=== PATIENT | female | born 1975 | race Caucasian/White ===

== ENCOUNTER 2021-03-31 00:59 | Emergency (ER) | payer MEDICAID ==
[~2021-03-31] VITALS: Ht 177.8 cm; Wt 93.0 kg
[2021-03-31 01:05] VITALS: BP_SYST 142
--- NOTE | 2021-03-31 01:12 | NUR ---
Patient to ER bed 6 to gown for evaluation. Side rails up. Report given to ELISABET Jones.
--- NOTE | 2021-03-31 01:30 | NUR ---
DR. ROYAL AT BEDSIDE FOR EVALUATION.
--- NOTE | 2021-03-31 01:33 | NUR ---
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 Patient tolerated well.
--- NOTE | 2021-03-31 01:40 | NUR ---
PATIENT AAOX4 AND AMBULATORY FROM HOME C/O VAGINAL BLEEDING X3 MONTHS. STATED ALSO HAVING PAIN TO UPPER TOOTH D/T ABCESS. VSS. IS TAKING ABTX AT HOME FOR UTI AND ABCESS. CURRENTLY STATING HAVING 7/10 ON THE PAIN SCALE TO RIGHT LOWER ABDOMEN.
[2021-03-31 01:48] LABS: BASOPHILS # (AUTO) 0.1 K/uL (0.0-0.2); BASOPHILS % (AUTO) 0.9 % (0.0-2.0); EOSINOPHILS # (AUTO) 0.3 K/uL (0.0-0.4); EOSINOPHILS % (AUTO) 2.9 % (0.0-4.0); HEMATOCRIT 40.2 % (36-48); HEMOGLOBIN 13.6 g/dL (12.0-16.0); LYMPHOCYTES # (AUTO) 2.7 K/uL (1.0-5.5); LYMPHOCYTES % (AUTO) 28.7 % (20.5-51.5); MEAN CORPUSCULAR HEMOGLOBIN 29 pg (27-31); MEAN CORPUSCULAR HGB CONC 34 % (32-36); MEAN CORPUSCULAR VOLUME 86 fL (79.0-98.0); MONOCYTES # (AUTO) 0.7 K/uL (0.0-1.0); MONOCYTES % (AUTO) 7.9 % (1.7-9.3); NEUTROPHILS # (AUTO) 5.5 K/uL (1.8-7.7); NEUTROPHILS % (AUTO) 59.6 % (40.0-70.0); PLATELET COUNT (AUTO) 344 K/uL (130-430); RED BLOOD CELL COUNT(AUTO) 4.67 MIL/uL (4.2-6.2); RED CELL DISTRIBUTION WIDTH 13.4 % (9.0-15.0); WHITE BLOOD COUNT (AUTO) 9.3 K/uL (4.8-10.8)
[2021-03-31 01:56] LABS: CALCIUM 8.4 mg/dL (8.4-11.0); CREATININE 0.83 mg/dL (0.55-1.30)
--- NOTE | 2021-03-31 02:00 | NUR ---
PT TAKEN TO ULTRASOUND.
[2021-03-31 02:08] LABS: ALBUMIN 3.5 g/dL (3.4-4.8); TOTAL BILIRUBIN 0.2 mg/dL (0.0-1.0)
[2021-03-31 03:27] VITALS: BP_SYST 159
--- NOTE | 2021-03-31 03:28 | NUR ---
Patient given written and verbal discharge instructions and verbalizes understanding. DR. LELE CHOWDHURY MD discussed with patient the results and treatment provided. Patient in stable condition. ID arm band removed. Patient educated on pain management and to follow up with PMD. Pain Scale 0/10. Opportunity for questions provided and answered. Medication side effect fact sheet provided.
== END 2021-03-31 03:28 | disposition home or self-care (01) ==
LOC: SED 00:59
DX: N93.8 Other specified abnormal uterine and vaginal bleeding (principal); K08.89 Other specified disorders of teeth and supporting structures
CPT/HCPCS: 36415; 76830-TC; 76857; 80053; 84702; 85025; 99284